=== PATIENT | male | born 1955 | race African-American/Black ===

== ENCOUNTER 2017-01-15 11:37 | Observation (INO) | payer MEDICARE ==
[~2017-01-15] VITALS: Ht 182.9 cm; Wt 83.2 kg
--- NOTE | ~2017-01-15 | A ---
[facility] Nutrition Therapy DATE: 01/17/17 Patient: ADRY WU Physician: KARIN Address: [address] [place] [address] Room/Bed: [address] [place] [address], Zip: [place] [address] Admit Date: 01/15/17 Date of : [birth year] Height: 6 0 Weight: 183 83.2 NUTRITIONAL ASSESSMENT: REASON: CONSULT RE: STROKE PROTOCOL PT D/C'D HOME BEFORE RD SAW PT. Respectfully, Karin Hoyt RD, LD Food and Nutritional Services [facility] [place] [facility] cc: client file
--- NOTE | ~2017-01-15 | MR18 ---
[facility] A Service of [facility] RADIOLOGY TEXT RESULTS PATIENT: ADRY WU LOCATION: [facility] 329- : [birth year] UNIT #: [id number] AGE: [address]: Jesenia Chavez MD SEX: M ORDER DR: [id number] [facility] [address] [facility]. [place], [place] [address] [id number] I MR#: [id number] Acc #: [id number] NAME: ADRY WU : 1955 SEX: M STUDY DATE/TIME: 01/15/2017 15:37 UNIT: C3A PCU ROOM: [facility] STUDY DESCRIPTION: MR Brain Wo Contrast Attending Physician: Jesenia Chavez M.D. Ordering Physician: Physician Non-Staff Primary Care Physician: [facility] MRI CENTER REPORT This report is preliminary unless electronic signature is present. EXAM MRI brain without contrast 01/15/2017 HISTORY Left hand weakness and left finger numbness since last night. Could not use hand. Headaches for a couple of months. No known injury. Previous history of stroke. Additional history of diabetes, hypertension, schizophrenia. COMPARISON Noncontrast CT head 01/15/201704/1937 and 08/02/2013. TECHNIQUE Multiplanar, multisequence imaging of the brain without contrast. FINDINGS There are no diffusion abnormalities, and there is no evidence of acute or evolving large acute or subacute infarct. Chronic encephalomalacic changes within the high right frontal lobe again noted. Scattered increased T2 and FLAIR signal intensity changes within the deep white matter of the brain and within the periventricular distribution thought to represent changes of chronic microvascular disease. No acute intracranial hemorrhage is identified. Scattered punctate foci of gradient-echo changes within the regions of bilateral cerebellar hemispheres and scattered throughout the sulci of the frontal, parietal lobes and along the middle cranial fossa are nonspecific but may represent sequelae of remote bleed. No mass lesion, mass effect or midline shift is seen. There is [id number] generalized parenchymal atrophy. 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 [facility] A Service of [facility] RADIOLOGY TEXT RESULTS PATIENT: ADRY WU LOCATION: C3A 329-01 : 59 UNIT #: [id number] AGE: [address]: Jesenia Chavez MD SEX: M ORDER DR: Major vascular flow voids appear preserved. There is nodular mucosal thickening, particularly within the right frontal and left maxillary sinuses with more minor mucosal thickening in the ethmoid and right maxillary sinuses and left frontal sinus. Globes appear within normal limits. Not mentioned above, chronic-appearing lacunar infarct within the left demian-yamilka. Calvaria is within normal limits. IMPRESSION 1. There are no diffusion abnormalities and no evidence of acute or subacute ischemic insult. 2. Chronic encephalomalacia in the high right frontal lobe consistent with remote infarct. Scattered chronic microvascular disease changes are seen elsewhere throughout the deep white matter of the brain. Chronic lacunar infarct in the left demian-yamilka. 3. Scattered areas of sclerotic change in the sulci of bilateral frontal temporal-parietal lobes and within the bilateral cervical hemispheres may represent sequelae of remote intracranial hemorrhage. There is no evidence of acute intracranial hemorrhage. 4. Moderate generalized atrophy. 5. Paranasal sinus disease. Dictated by... Massiel Ibarra M.D. THIS IS AN ELECTRONICALLY VERIFIED REPORT Massiel Ibarra M.D. at 01/16/2017 7:46 PM MARISOL/karoline TD: 01/16/2017 15:43 JOB #: [id number] MRI CENTER REPORT Page 1 of 1 COPY
--- NOTE | ~2017-01-15 | HP ---
Unit #: [id number] #: [id number] Patient: ADRY WU [id number] [address] [address] [id number] I MR#: [id number] NAME: ADRY WU ROOM: 329 Age: 61 Sex: M Admission Date: 01/15/2017 : 1955 Attending Physician: Jesenia Chavez M.D. Primary Care Physician: [facility]. HISTORY AND PHYSICAL CHIEF COMPLAINT Left arm numbness. HISTORY OF PRESENT ILLNESS The patient is a 61-year-old male, with a past medical history of diabetes, hypertension, schizophrenia, who was brought to the emergency room complaining of the left hand tingling and numbness since yesterday evening. The patient stated that he was doing fine and then he dropped a cup of coffee because he was unable to hold it. The patient denies any head trauma. The patient has a history of a remote cerebrovascular accident in the past of the frontal lobe. He denies any fevers, denies any chills, denies any chest pain, denies any nausea or vomiting. The patient is being admitted for the above reasons. PAST MEDICAL HISTORY History of diabetes, hypertension, schizophrenia, and chronic cerebrovascular accident. PAST SURGICAL HISTORY None. SOCIAL HISTORY The patient lives with his sister. He is a smoker. He smokes three packs per day. There is no alcohol or illicit drug abuse. FAMILY HISTORY Notable for his mother having diabetes. ALLERGIES No known drug allergies. HOME MEDICATIONS The patient is on: 1. Flexeril 2. Lisinopril 3. Benztropine 4. Norvasc 5. Omeprazole 6. Metoprolol 7. HCTZ 8. Metformin 9. Meloxicam 10. Latanoprost Unit #: [id number] #: [id number] Patient: ADRY WU REVIEW OF SYSTEMS Positive for the weakness and numbness on the left upper extremity, and positive for the tremors, an denies any chest pain, denies any headache, denies any nausea or vomiting, and all other systems have been reviewed. PHYSICAL EXAMINATION GENERAL: The patient is lying on the bed, not in acute distress. VITALS: Temperature is 97.8, pulse 91, respiratory 16, and blood pressure 174/109, satting 95% at room air. HEENT: Head: Atraumatic and normocephalic. Pupils equal, round, reactive to light and accommodation. Extraocular movements are intact. Dry mucous membranes. LUNGS: Decreased air entry at the bases. HEART: Regular rate and rhythm. Tachycardic. ABDOMEN: Soft, positive bowel sounds. EXTREMITIES: No cyanosis, no clubbing. NEURO: The patient has a weakness of the left upper extremity, compared to the right upper extremity, and the patient has tremors at rest. PSYCH: Mood and affect appropriate. DIAGNOSTIC STUDIES LAB DATA: WBCs 5.3, hemoglobin 11.6, hematocrit 33.5, platelets is 168, troponin less than 0.05, and INR is 1.1, and sodium is 134, potassium 3.4, chloride 99, bicarb 29, glucose 101, BUN less than 5, creatinine 1, calcium is 8.9. ASSESSMENT/PLAN 1. Left upper extremity weakness to rule out transient ischemic attack. 2. Uncontrolled hypertension. Plan to admit the patient to the observation telemetry. The patient will be seen by neurology for the left upper extremity weakness. The patient had a MRI that showed no acute diffusion images, concerning for the acute etiology and the patient is known to Dr. Alatorre in the past and will ask him for the blood pressure control and will resume his blood pressure medications and check the echocardiogram and further recommendations to follow as more labs results are available and the patient's EKG shows sinus rhythm with a premature atrial complex at 75 beats per minute, and further recommendations will follow. Dictated by Deborah Darden TD: 01/16/2017 11:31 JOB #: [id number] Unit #: [id number] #: [id number] Patient: ADRY WU HISTORY AND PHYSICAL Page 1 of 1 X PATRICA HERZOG MD X HISTORY AND PHYSICAL
--- NOTE | ~2017-01-15 | CO ---
Unit #: [id number] #: [id number] Patient: ADRY WU [id number] [facility] [address]. [place], [place] [address] [id number] I MR#: [id number] NAME: ADRY WU ROOM: 329 Age: 61 Sex: M Admission Date: 01/15/2017 : 1955 Attending Physician: Lorenzo Greene M.D. Primary Care Physician: [facility] Consultation Date: 01/16/2017 CONSULTATION REPORT REASON FOR CONSULTATION Hypertension. HISTORY OF PRESENT ILLNESS This is a 61-year-old, male, previously known to our group through prior hospitalization to [facility] in 07/2013 for pneumonia, sepsis, acute kidney injury, and uncontrolled hypertension. The patient was also treated for sinus tachycardia. He states that he had a stress test years ago that was reportedly normal. There is no past medical history of previous cardiac catheterizations. He is on oral medications for type 2 diabetes mellitus. He is known to have schizophrenia and previous cerebrovascular accident 12 to 13 years ago, which was reportedly due to drug abuse. The patient has a history of methamphetamine use and marijuana, but has not used in the last 12 years. He does continue to use tobacco with 3 packs of cigarettes per day. He presented to the emergency department with complaints of left arm weakness and numbness. He states that this started on Tuesday night. He was so weak that he cannot lift a cup of water. These are new symptoms, and so he was brought to the emergency department yesterday. He denies visual loss or any other new symptoms. He does have chronic speech problems, which his sister states were unchanged. He also has a tremor in his left shoulder, which is not new. Denies fever or chills. There are no reports of chest pain, shortness of breath, palpitations, PND, or orthopnea. 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 In the emergency department; his temperature is 97.8, pulse 91, respirations 16, blood pressure 174/109, and O2 saturation 95% on room air. He was given a full dose aspirin. He was admitted for left arm numbness with concern for TIA versus CVA. CT of the head revealed changes in the high right frontal lobe from remote infarct. These findings were seen on previous exam in 2013. There is chronic microvascular changes and paranasal sinus disease. Neurology was consulted. An MRI of the brain is pending. The patient's blood pressure has been elevated at 153/107 and 169/115 mmHg, despite oral agents. Cardiology was consulted for hypertension. PAST MEDICAL HISTORY 1. Previous admission to [facility] in 07/2013 for sinus tachycardia, uncontrolled hypertension, acute kidney injury, sepsis, and pneumonia. 2. Previous stress test a few years ago reportedly normal per the patient, details unavailable. Unit #: [id number] #: [id number] Patient: ADRY WU 3. No previous cardiac catheterizations. 4. Cerebrovascular accident reportedly 12 to 13 years ago per the patient and family, details unavailable. 5. Schizophrenia. 6. History of marijuana and methamphetamine use approximately 12 years ago. 7. Thrombocytopenia. 8. Active tobacco abuse with 3 packs of cigarettes per day. 9. History of methamphetamine and marijuana and tobacco. 10. History of tremors. PAST SURGICAL HISTORY None. HOME MEDICATIONS List of home medications are under review with [facility]. His current list of medications include: 1. Flexeril 10 mg p.o. at bedtime p.r.n. 2. Lisinopril 30 mg p.o. daily. 3. Benztropine mesylate 2 mg p.o. b.i.d. 4. Amlodipine 10 mg p.o. daily. 5. Omeprazole 40 mg p.o. daily. 6. Metoprolol ER/hydrochlorothiazide 100/12.5 mg p.o. daily. 7. Metformin 500 mg p.o. every morning. 8. Meloxicam 7.5 mg p.o. daily p.r.n. 9. Dilantin 1 drop OU at bedtime. ALLERGIES No known drug allergies. SOCIAL HISTORY The patient lives in a private residence. He has a history of methamphetamine and marijuana use, but none in the last 12 years. He denies alcohol. He does smoke up to 3 packs of cigarettes per day. FAMILY HISTORY Significant for heart disease. Mother had 3-vessel coronary artery bypass grafting. REVIEW OF SYSTEMS A 10-point review of systems negative except for details noted above in HPI. PHYSICAL EXAMINATION VITAL SIGNS: Temperature 97.6, pulse 76, and blood pressure 153/107. CONSTITUTIONAL: This is a 61-year-old male, in no acute distress. SKIN: Warm and dry. NECK: Supple. No jugular vein distention. No hepatojugular reflux. Normal carotid upstrokes. No carotid bruits auscultated. HEART: S1 and S2. Regular rate and rhythm. No murmurs, rubs, or gallops. LUNGS: Bilateral breath sounds have good air entry throughout all lung bustamante. Respirations even and nonlabored. No rales, rhonchi, or wheezes. ABDOMEN: Soft, nontender, and nondistended. Positive bowel sounds auscultated x4 quadrants. No ascites noted. EXTREMITIES: Bilateral lower extremities have no pretibial pitting edema. DP and PT pulses are 2+. Capillary refill is less than 2 seconds. Unit #: [id number] #: [id number] Patient: ADRY WU DIAGNOSTIC STUDIES LABORATORY RESULTS: White blood cell count 4.6, hemoglobin 12.1, hematocrit 35.7, and platelets 153. Sodium 137, potassium 3.5, chloride 102, CO2 of 30, BUN 5, creatinine 0.9, glucose 75. Hemoglobin A1c 5.5. INR 1.1. IMAGING STUDIES: CT of the head reveals encephalomalacic changes within the high right frontal lobe with remote infarct. Findings similar to exam in 2014. Chronic microvascular changes. Paranasal sinus disease. CARDIOVASCULAR STUDIES: Electrocardiogram reveals sinus rhythm with no acute ST or T-wave changes. IMPRESSION 1. Left upper extremity weakness and numbness. 2. Questionable TIA versus cerebrovascular accident. 3. History of cerebrovascular accident reportedly 12 to 13 years ago. 4. Uncontrolled hypertension. 5. Diabetes mellitus type 2. 6. Mild sinus tachycardia. 7. History of marijuana and methamphetamine use. 8. Schizophrenia. 9. Tremors. 10. Active tobacco abuse. PLAN 1. The patient was in the hospital with complaints of left arm numbness and weakness. He was admitted for further evaluation. Neurology was consulted. MRI of the brain is pending. 2. Cardiology was consulted for hypertension. 3. The patient's home medications will be reviewed. His lisinopril will be increased to 20 mg p.o. b.i.d., and he will be started on hydralazine 25 mg p.o. q.6 hours with parameters. 4. He will be placed on a high-dose statin therapy. 5. He has been encouraged to refrain from tobacco abuse. 6. Urine toxicology will be obtained due to history of drug abuse. Dictated by... ALFRED Dao/ananya TD: 01/17/2017 11:24 JOB #: [id number] CONSULTATION REPORT Page 1 of 1 X X CONSULTATION REPORT
--- NOTE | ~2017-01-15 | CT17 ---
[facility] A Service of [facility] RADIOLOGY TEXT RESULTS PATIENT: ADRY WU LOCATION: [facility] 329-01 : [birth year] UNIT #: [id number] AGE: [address]: Lorenzo Greene MD SEX: M ORDER DR: [id number] [address] [address] [id number] I MR#: [id number] Acc #: [id number] NAME: ADRY WU : 1955 SEX: M STUDY DATE/TIME: 01/16/2017 13:24 UNIT: [address] ROOM: [facility] STUDY DESCRIPTION: CT Angio Head Attending Physician: Loernzo Greene M.D. Ordering Physician: Chery Josue M.D. Primary Care Physician: [facility] MEDICAL IMAGING REPORT This report is preliminary unless electronic signature is present EXAM CT angiogram of the head HISTORY FINDINGS Please see CT angiogram of the neck for results. Dictated by... Luciano Kirk M.D. THIS IS AN ELECTRONICALLY VERIFIED REPORT Luciano Kirk M.D. at 01/17/2017 11:47 AM Dennys TD: 01/17/2017 10:52 JOB #: [id number] MEDICAL IMAGING REPORT Page 1 of 1 COPY
--- NOTE | ~2017-01-15 | CT23 ---
[facility] A Service of [facility] RADIOLOGY TEXT RESULTS PATIENT: ADRY WU LOCATION: [facility] 329- : [birth year] UNIT #: [id number] AGE: [address]: Lorenzo Greene MD SEX: M ORDER DR: [id number] [facility] [address]. [place], [place] [address] [id number] I MR#: [id number] Acc #: [id number] NAME: ADRY WU : 1955 SEX: M STUDY DATE/TIME: 01/16/2017 13:24 UNIT: A U ROOM: [facility] STUDY DESCRIPTION: CT Angio Neck Attending Physician: Lorenzo Greene M.D. Ordering Physician: Chery Josue M.D. Primary Care Physician: [facility], [facility]. MEDICAL IMAGING REPORT This report is preliminary unless electronic signature is present EXAM CTA head and neck INDICATION TIA. Left hand and finger numbness. 2-day duration. TECHNIQUE CT angiography of the head and neck utilizing 100 mL Isovue-370 IV contrast. Coronal and sagittal 3-D MIP reconstructions were obtained. Volume rendered and surface rendered reconstructions were also performed. Curved planar reconstructions of the great vessels were reviewed. This CT exam was performed with one or more of the following radiation dose reduction techniques: Automatic exposure control, adjustment of mA and/or kV according to patient size and iterative reconstruction. COMPARISON MR brain dated 01/15/2017. FINDINGS CTA Neck: Evaluation for significant stenosis is based on NASCET criteria. There is a three-vessel aortic arch. There is only mild atherosclerotic disease of the carotid arteries. No evidence of a significant carotid arterial stenosis. The vertebral arteries are patent and codominant. CTA HEAD: There is moderate atherosclerotic calcifications of both intracranial internal carotid arteries. There is stenoses suspected in the cavernous and supraclinoid ICAs. The middle cerebral arteries show mild atherosclerotic disease, however there is no evidence of a focal thrombosis. No aneurysm. The anterior cerebral arteries are widely [facility] A Service [facility] RADIOLOGY TEXT RESULTS PATIENT: ADRY WU [id number] [birth year] UNIT #: [id number] AGE: [address]: Lorenzo Greene MD SEX: M ORDER DR: patent. The anterior communicating artery is not clearly identified. There is moderate atherosclerotic disease of both intracranial vertebral arteries. The basilar artery is patent. There is mild atherosclerotic disease involving the posterior cerebral arteries. The right posterior communicating artery and the left posterior communicating arteries are patent. The dural veins are patent. IMPRESSION 1. No evidence of a carotid arterial stenosis in the neck. 2. Moderate atherosclerotic disease of the intracranial internal carotid arteries with several areas of suspected stenoses. 3. Mild atherosclerotic disease of the middle cerebral arteries, anterior cerebral arteries, and the vertebral arteries. 4. No evidence of a vascular thrombosis or aneurysm. Dictated by... Luciano Kirk M.D. THIS IS AN ELECTRONICALLY VERIFIED REPORT Luciano Kirk M.D. at 01/17/2017 11:47 AM OMAR/steven TD: 01/17/2017 10:51 JOB #: [id number] MEDICAL IMAGING REPORT Page 1 of 1 COPY
--- NOTE | ~2017-01-15 | CT71 ---
[facility] A Service of [facility] RADIOLOGY TEXT RESULTS PATIENT: ADRY WU LOCATION: [facility] 329- : [birth year] UNIT #: [id number] AGE: [address]: Jesenia Chavez MD SEX: M ORDER DR: [id number] [facility] [address] [place], [place] [address] [id number] I MR#: [id number] Acc #: [id number] NAME: ADRY WU : 1955 SEX: M STUDY DATE/TIME: 01/15/2017 12:37 UNIT: A U ROOM: [facility] STUDY DESCRIPTION: CT Head Wo Contrast Attending Physician: Janie Naidu M.D. Ordering Physician: Russ Moody D.O. [facility] Care [facility] REPORT This report is preliminary unless electronic signature is present EXAMINATION CT head without contrast. DATE 01/15/2017 HISTORY 61-year-old male with left arm numbness and weakness since the evening of 01/14/2017. Additional history of hypertension, tremors, diabetes. COMPARISON Noncontrast CT head, 08/02/2013. TECHNIQUE This CT exam was performed with one or more of the following radiation dose reduction techniques: automatic exposure control, adjustment of mA and/or kV according to patient size, and iterative reconstruction. FINDINGS No acute displaced calvarial fracture is identified. Moderate right greater than left frontal sinus mucosal thickening is present. Mild ethmoid air cell mucosal thickening. Mastoid air cells are clear. Dense intracranial carotid artery calcifications are noted. There are signs of old right frontal lobe infarct, unchanged from prior. Scattered chronic microvascular disease changes in the deep white matter, without convincing CT evidence of acute or evolving infarct at this time. No mass lesion, mass effect or midline shift is seen. Cavum septum pellucidum incidentally noted. IMPRESSION 1. No acute intracranial findings. If patient's stroke-like symptoms persist consider correlation to MRI brain/stroke protocol. [facility] A Service [facility] RADIOLOGY TEXT RESULTS PATIENT: ADRY WU LOCATION: A 329-01 : 59 UNIT #: [id number] AGE: [address]: Jesenia Chavez MD SEX: M ORDER DR: 2. Encephalomalacic change in the high right frontal lobe consistent with remote infarct, is similar to the 08/02/2013 exam. Scattered chronic microvascular disease changes elsewhere is seen within the deep white matter. 3. Paranasal sinus disease. Dictated by... Massiel Ibarra M.D. THIS IS AN ELECTRONICALLY VERIFIED REPORT Massiel Ibarra M.D. at 01/16/2017 7:46 PM MARISOL/gael TD: 01/16/2017 05:46 JOB #: [id number] MEDICAL IMAGING REPORT Page 1 of 1 COPY
--- NOTE | ~2017-01-15 | EKG ---
PATIENT: ADRY WU UNIT #: [id number] Ventricular Rate: 75 BPM Atrial Rate: 75 BPM P-R Interval: 156 ms QRS Duration: 90 ms Q-T Interval: 374 ms QTC Calculation(Bezet): 417 ms P [place]: 55 degrees Calculated R [place]: 8 degrees Calculated T [place]: 24 degrees Diagnosis Line: Sinus rhythm with Premature atrial complexes Diagnosis Line: Otherwise normal ECG Diagnosis Line: When compared with ECG of 05-AUG-2013 23:25, Diagnosis Line: Premature atrial complexes are now Present Diagnosis Line: Confirmed by LESLIE GARZA MD ([id number]) on 01/16/2017 Diagnosis Line: 11:04:53 PM INTERPRETING MD: KAYLA CALVILLO
--- NOTE | ~2017-01-15 | CO ---
Unit #: [id number] #: [id number] Patient: ADRY WU [id number] [facility] [address]. [place], [place] [address] [id number] MR#: [id number] NAME: ADRY WU ROOM: 329 Age: 61 Sex: M Admission Date: 01/15/2017 : 1955 Attending Physician: Jesenia Chavez M.D. Primary Care Physician: [facility] CONSULTATION REPORT PATIENT IDENTIFICATION This is a 61-year-old right-handed Afro-[place] male, who was evaluated in room 329 at [facility]. SOURCE OF INFORMATION The patient and medical records. PROBLEM LIST He has history of hypertension. He has history of tremors. He has a schizophrenia. He is diabetic. He has GERD. He has had prior strokes may be area from cerebral hemorrhage also. He has had left hand and finger numbness since yesterday which is improved significantly. His MRI is negative. Mild anemia. Significant hypertension with systolic as high as 188, diastolic as high as 115. HISTORY OF PRESENT ILLNESS This is a very pleasant 61-year-old gentleman, who actually came to the hospital with left arm numbness. He was saying that he had left hand and some finger numbness since Tuesday and he came Tuesday at 11:37 a.m., so he was not a tPA or interventional candidate and he has improved significantly. One of the biggest concern was hypertension. Also he is a smoker, but considering his history, he has had prior strokes and he has right parietal stroke. He already got an MRI, which did not show any acute stroke, but high right parietal infarct and along with that, he had an area of possible some hemosiderin deposit in several areas in the gyri/sulci. I do not see that he is on any platelet aggregation inhibitors that is strange because of his prior strokes. He also has this strange tremor and he is looking shoulder shrugs more on the left side, but is distractible and stops, so a focal seizure less likely, but is not absolutely ruled out, and looking at his previous history, he has had sinus tachycardia. He has had kidney injuries and pneumonia with sepsis and elevated liver function tests and immobilization syndrome. He wants to go home. No falls or injuries. No headaches, no migraines. Again seizure less likely. PAST MEDICAL HISTORY As discussed above. PAST SURGICAL HISTORY None. Unit #: [id number] #: [id number] Patient: ADRY WU ALLERGIES None. HOME MEDICATIONS Based on the records are meloxicam, amlodipine, metoprolol, omeprazole, Accu-Chek, nystatin, cyclobenzaprine, lisinopril, metformin, clotrimazole, Symbicort, quetiapine 400 mg, Tudorza Pressair 400, Cogentin 2 mg, divalproex sodium 500 mg. FAMILY HISTORY No coronary artery disease or stroke known to me. SOCIAL HISTORY Apparently, he is single. He is not working. Smokes about two packs per day. 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 He apparently was living with his sister. REVIEW OF SYSTEMS CONSTITUTIONAL: Detailed review of system was attempted and the patient denies any sleep issues, fever, chills, rigor, or sweats. HEENT: No headaches. No double vision, earache, runny nose, or sore throat. CARDIOVASCULAR: No chest pain, clubbing, cyanosis, orthopnea, or palpitation. PULMONARY: No shortness of air, cough, or expectoration. GASTROINTESTINAL: No nausea, vomiting, diarrhea, or constipation. GENITOURINARY: No genitourinary symptom. EXTREMITIES: No extremity problem other than discussed. BACK: No back problems. PSYCHIATRIC: Schizophrenia. NEUROLOGIC: History of prior strokes. He is diabetic. He denies any other dermatologic, endocrine, or other problems. PHYSICAL EXAMINATION VITAL SIGNS: Temperature 97.6, pulse 76, respirations are 18, blood pressure 153/107, O2 saturations were 93% to 100%, weight of 102 pounds. BMI was 24. NEUROLOGIC: The patient is awake. He is alert. He is essentially fully oriented. He can name and he can follow commands. No right/left confusion. No finger agnosia. Cranial nerve examination demonstrates full bustamante of vision to confrontation. He looks like his left eye is deviated out, but he denies any problems. Eye movements are conjugate. No ptosis. No nystagmus. Pupils are sluggishly reactive, size about 3 mm. Sensation on the face and scalp are normal. Strength of muscles of facial expression are normal. Hearing seemed to be intact. Tongue was midline. I could not visualize his oropharynx or uvula. Head turning was spontaneous. Motor examination, he has some weakness on the left side. Very minimal drift. Left upper extremity is 4+ to 5-/5. Right side is 5/5. Sensory examination is intact for soft touch and pain sensation. No extinction was seen. Romberg was not evaluated. Gait examination was deferred. Unit #: [id number] #: [id number] Patient: ADRY WU I could not get any reflexes. Toes are upgoing on the left, downgoing on the right. DIAGNOSTIC STUDIES LABORATORY RESULTS: Reviewed. His hemoglobin A1c was 5.5. Other labs are in progress. Previously high valproic acid level. White count was 4.6, H and H of 12.1 and 35.7. IMAGING STUDIES: Reviewed. IMPRESSION This is a very interesting 61-year-old gentleman with prior strokes, who came with left-sided weakness with no new stroke, so this is unmasking does he have hypertensive encephalopathy. He is not on any antiplatelet medication. I do not think this is a transient ischemic attack, but he has prior stroke, so I will do stroke workup. He is obviously not a tPA or interventional candidate. Good blood pressure control. Good diabetes control. I will check his cholesterol profile and we will go from there. I will keep you informed. Call me for any other questions, issues, or concerns and if all the other tests are okay, he may be discharged to follow up with neurologist of choice as outpatient. Dictated by... Deborah Daly/ananya TD: 01/16/2017 13:16 JOB #: [id number] CONSULTATION REPORT Page 1 of 1 X Chery Josue MD CONSULTATION REPORT
--- NOTE | ~2017-01-15 | DS ---
Unit #: [id number] #: [id number] Patient: ADRY WU [id number] [address] [address] [id number] I MR#: [id number] NAME: ADRY WU ROOM: 329 Age: 61 Sex: M Admission Date: 01/15/2017 : 1955 Discharge Date: 01/17/2017 Attending Physician: Lorenzo Greene M.D. Primary Care Physician: [facility] DISCHARGE SUMMARY PRIMARY DIAGNOSIS Left hand numbness, resolved. SECONDARY DIAGNOSES 1. Old stroke. 2. Hypertension. 3. Bradycardia. 4. Diabetes, controlled. HOSPITAL COURSE The patient was admitted to the hospital with left hand numbness, saw Dr. Josue with neurology who performed a MRI of his head and a CT angiogram of his head and neck. There was no acute stroke lesion but there was evidence of old strokes which were known per his history. CT angiogram showed internal carotid stenoses bilaterally and discussion with Dr. Josue resulted in a suggestion of high-dose statin medication, continuing his previous home dose of aspirin 81 mg p.o. daily, and the addition of Plavix for a second antiplatelet medication. Dr. Josue also recommended the patient follow up with the [facility] as an outpatient and the manager of community relations has left a message on the voice mail of [facility] to get them scheduled. The patient did have some bradycardia and so his home metoprolol dose was decreased. He did have some uncontrolled hypertension, so had the addition of increased hydrochlorothiazide, lisinopril, and hydralazine. DISCHARGE DISPOSITION To home with home health. DISCHARGE STATUS Stable. DISCHARGE ACTIVITY Ad eder. DISCHARGE DIET Low-sodium, diabetic diet although the low sodium portion is much more important for this patient. DISCHARGE FOLLOWUP 1. With his PCP in two to three weeks. 2. Followup with [facility] in two to eight weeks. Unit #: [id number] #: [id number] Patient: ADRY WU DISCHARGE MEDICATIONS 1. Metformin 500 mg p.o. q.a.m. 2. Atorvastatin 80 mg p.o. nightly. 3. Benztropine 2 mg p.o. b.i.d. 4. Metoprolol succinate/hydrochlorothiazide 50 mg/25 mg p.o. once daily. 5. Amlodipine 10 mg p.o. daily. 6. Xalatan one drop each eye nightly. 7. Hydralazine 25 mg p.o. t.i.d. 8. Lisinopril 40 mg p.o. daily. 9. Meloxicam 7.5 mg p.o. daily p.r.n. pain. 10. Plavix 75 mg p.o. daily. 11. Omeprazole 40 mg p.o. daily. 12. Aspirin 81 mg p.o. daily. 13. Flexeril 10 mg p.o. nightly p.r.n. for muscle spasms. Dictated by... Lorenzo Greene M.D. JO/luisito TD: 01/18/2017 10:19 JOB #: [id number] DISCHARGE SUMMARY Page 1 of 1 X Lorenzo Greene MD X DISCHARGE SUMMARY
[~2017-01-15 11:37] MED LIST: AMLODIPINE BESY10 MG PO; DIVALPROEX SOD250 MG PO; FLEXERIL10 MG PO; GLIPIZIDE10 MG PO; LISINOPRIL20 MG PO; MELOXICAM7.5 MG/5 M PO; METFORMIN HCL500 M1 PO; OMEPRAZOLE40 M1 PO; QUETIAPINE FUM400 MG PO; TOPROL XL100 MG PO
[2017-01-15 12:45] LABS: BASOPHIL% 0.4 % (0-2.5); EOSINOPHIL# 0.1 X10e3 (0-0.7); EOSINOPHIL% 1.9 % (0.0-7.0); HEMATOCRIT 33.5 % (38.0-50.0); HEMOGLOBIN 11.6 gm/dL (13.0-16.0); LYMPHOCYTE# 1.1 X10e3 (1.0-3.5); LYMPHOCYTE% 20.2 % (17.0-45.0); MEAN CELL VOLUME 99.4 FL (83-96); MEAN CORPUSCULAR HEMOGLOBIN 34.5 PG (28-34); MEAN CORPUSCULAR HGB CONC 34.8 g/dL (30-36); MEAN PLATELET VOLUME 8.7 FL (6.5-11.5); MONOCYTE# 0.3 X10e3 (0-1.0); MONOCYTE% 6.6 % (3.0-12.0); NEUTROPHIL# 3.8 X10e3 (1.5-7.1); NEUTROPHIL% 70.9 % (40-75); PLATELET COUNT 168 X10e3 (140-420); RED BLOOD COUNT 3.37 X10e (3.90-5.60); RED CELL DISTRIBUTION WIDTH 16.3 % (11.0-15.5); WHITE BLOOD COUNT 5.3 X10e3 (4.0-10.5)
[2017-01-15 12:48] LABS: DIFF IND NO
[2017-01-15 12:52] LABS: POC - CKMB 1.6 ng/mL (0.0-7.9); POC - TROPONIN <0.05 ng/mL (<=0.05)
[2017-01-15 12:57] LABS: INR 1.1; PROTHROMBIN TIME (PATIENT) 11.7 SECONDS (10.0-11.7)
[2017-01-15 13:11] LABS: CALCIUM SERUM 8.9 mg/dL (8.4-10.2); CARBON DIOXIDE 29 mmol/L (22-31); CHLORIDE 99 mmol/L (100-111); GLOM FILT RATE Estimated 95.1 mL/min (>60); GLUCOSE FASTING 101 mg/dL (70-110); POTASSIUM 3.4 mmol/L (3.5-5.1); SODIUM 134 mmol/L (135-145)
[2017-01-15 13:13] LABS: BLOOD UREA NITROGEN <5 mg/dL (9-23)
[2017-01-15] MEDS ORDERED: BENZTROPINE MESY2 MG PO (13:42)
[2017-01-15] MEDS ORDERED: AMLODIPINE BESY10 MG PO (13:42)
[2017-01-15] MEDS ORDERED: LISINOPRIL30 MG PO (13:42)
[2017-01-15] MEDS ORDERED: FLEXERIL10 MG PO (13:42)
[2017-01-15] MEDS ORDERED: OMEPRAZOLE40 M1 PO (13:43)
[2017-01-15] MEDS ORDERED: METOPROLOL ER-1 EAC1 PO (13:43)
[2017-01-15] MEDS ORDERED: MELOXICAM7.5 MG PO (13:43)
[2017-01-15] MEDS ORDERED: METFORMIN HCL500 M1 PO (13:43)
[2017-01-15] MEDS ORDERED: XALATAN OU (13:44)
[2017-01-16 05:53] LABS: HEMATOCRIT 35.7 % (38.0-50.0); HEMOGLOBIN 12.1 gm/dL (13.0-16.0); MEAN CELL VOLUME 100.5 FL (83-96); MEAN CORPUSCULAR HGB CONC 33.8 g/dL (30-36); MEAN PLATELET VOLUME 9.3 FL (6.5-11.5); RED BLOOD COUNT 3.55 X10e (3.90-5.60); RED CELL DISTRIBUTION WIDTH 16.2 % (11.0-15.5); WHITE BLOOD COUNT 4.6 X10e3 (4.0-10.5)
[2017-01-16 06:48] LABS: BUN/CREATININE RATIO 5.55; CREATININE SERUM 0.9 mg/dL (0.6-1.4); POTASSIUM 3.5 mmol/L (3.5-5.1)
[2017-01-16 12:12] LABS: CHOLESTEROL 119 mg/dL (0-200); HDL CHOLESTEROL 35 mg/dL (29-75); LDL CHOLESTEROL 67 mg/dL (-130); LDL/HDL RATIO 2 RATIO (0-4); TRIGLYCERIDES 83 mg/dL (10-160)
[2017-01-16 12:55] LABS: FOLATE (FOLIC ACID) 7.5 ng/mL (>5.8)
[2017-01-17] MEDS ORDERED: ATORVASTATIN CA80 MG PO (12:37)
[2017-01-17] MEDS ORDERED: METOPROLOL ER-1 EACH PO (12:38)
[2017-01-17] MEDS ORDERED: HYDRALAZINE HCL25 MG PO (12:39)
[2017-01-17] MEDS ORDERED: CLOPIDOGREL75 MG PO (12:40)
[2017-01-17] MEDS ORDERED: ASPIRIN81 M2 PO (12:40)
[2017-01-17] MEDS ORDERED: SEROQUEL PO (13:32)
[2017-01-17] MEDS ORDERED: DEPAKOTE250 MG PO (13:34)
[2017-01-17] MEDS ORDERED: DEPAKOTE PO (13:35)
== END 2017-01-17 14:33 | disposition home or self-care (01) ==
LOC: CED 11:37 → CEDOF 14:02 → CED 14:10 → CEDOF 18:15 → C3A PCU 18:15
PROVIDERS: Emergency Medicine; Internal Medicine; Nurse Practitioner Family; Psychiatry & Neurology Neurology
DX: R20.0 Anesthesia of skin (principal); I10 Essential (primary) hypertension; E11.9 Type 2 diabetes mellitus without complications; R00.1 Bradycardia, unspecified; R53.1 Weakness; F17.210 Nicotine dependence, cigarettes, uncomplicated; Z86.73 Personal history of transient ischemic attack (TIA), and cerebral infarction without residual deficits; Z79.82 Long term (current) use of aspirin; Z79.02 Long term (current) use of antithrombotics/antiplatelets; Z79.84 Long term (current) use of oral hypoglycemic drugs; Z79.1 Long term (current) use of non-steroidal anti-inflammatories (NSAID); Z79.899 Other long term (current) drug therapy
CPT/HCPCS: 36415; 70450; 70496; 70498; 70551; 80048; 80061; 80164; 82140; 82553; 82607; 82746; 82947; 83036; 84443; 84484; 85025; 85027; 85610; 85730; 86140; 93005; 93306; 97116; 97162; 97165; 97530; 99285; G0378; G8978-GP; G8979-GP; G8980-GP; G8987-GO; G8988-GO; G8989-GO; J1815; Q9967